=== PATIENT | female | born 1950 | race Caucasian/White ===

== ENCOUNTER → 2017-06-03 | Outpatient (CLI) | payer OTHER ==
--- NOTE | 2017-06-03 10:24 | KCIC ---
EXAM: Bilateral screening mammogram. HISTORY: 67-year-old female presents for screening mammography. TECHNIQUE: Full-field digital craniocaudal and mediolateral oblique views of both breasts are obtained for evaluation. Computer aided detection with FaceAlertaD software version 9.3 was applied. COMPARISON: 04/21/2016 BREAST PARENCHYMAL DENSITY: Level C - Heterogeneously dense. FINDINGS: There is suggestion of a circumscribed or partially circumscribed nodular density within the posterior 2:00 position of the left breast. There are asymmetries within both breasts which did not persist between projections, consistent with summation artifact. There are benign calcifications. IMPRESSION: BI-RADS Category 0: Additional imaging needed. RECOMMENDATION: Further evaluation with spot compression views of the left breast to assess a density at the 2:00 position is recommended. Sonographic imaging can also be performed if deemed indicated based on additional imaging findings. The patient will be contacted to return for additional imaging. If your mammogram demonstrates that you have dense breast tissue, which could hide abnormalities, and if you have other risk factors for breast cancer that have been identified, you might benefit from supplemental screening tests that may be suggested by your ordering physician. Dense breast tissue, in and of itself, is a relatively common condition. This information is not provided to cause undue concern, but rather to raise your awareness and to promote discussion with your physician regarding the presence of other risk factors, in addition to dense breast tissue. A report of your mammography results will be sent to you and your physician. You should contact your physician if you have any questions or concerns regarding this report. Mammography is a sensitive method for finding small breast cancers, but it does not detect them all and is not a substitute for careful clinical examination. A negative mammogram does not negate a clinically suspicious finding and should not result in delay in biopsying a clinically suspicious abnormality. PQRS compliance statement - Patient information was entered into a reminder system with a target due date for the next mammogram. "Our facility is accredited by the [employer] Mammography [employer]." Electronically signed by: Mariana Michel MD (06/03/2017 10:21 AM)
== END | disposition home or self-care (01) ==
LOC: KCIC MAMMO 08:54
PROVIDERS: ATTEND Obstetrics & Gynecology
DX: Z12.31 Encounter for screening mammogram for malignant neoplasm of breast (principal)
CPT/HCPCS: G0202; 77067

== ENCOUNTER → 2017-06-12 | Outpatient (CLI) | payer OTHER ==
--- NOTE | 2017-06-12 10:24 | KCIC ---
Diagnostic digital mammograms left breast: Reason for examination: Nodular density on screening mammogram. Comparison is made to mammographic exam dated 06/03/2017. Coned compression views were obtained in CC and oblique projections. With these additional views, the area of nodularity is less prominent but is probably obscured by the heterogeneously dense fibroglandular tissue. No suspicious masses or calcifications are identified. IMPRESSION: No suspicious abnormality seen mammographically with additional views. Ultrasound to follow. BI-RADS Category 0: Incomplete. Ultrasound to follow. Left Breast Ultrasound: Left whole breast ultrasound including evaluation of all 4 quadrants and the retroareolar and axillary regions of the left breast was performed. In the 1:00 position 3 cm from the nipple and probably corresponding to the area of mammographic concern, there is a small 5.4 x 4.5 mm circumscribed lesion consistent with some focal fibrocystic change. No other cystic or solid lesions are seen. IMPRESSION: Benign-appearing fibrocystic type lesion in the 1:00 position 3 cm from the nipple measuring 5.4 mm in greatest dimension. This probably corresponds to the area of mammographic concern. No other cystic or solid lesions are seen. Recommend 6 month sonographic follow-up. BI-RADS Category 3: Probably Benign. "Our facility is accredited by the [employer] Mammography [employer]." This patient's information has been entered into a reminder system for the patient to be notified with the results of her examination and a target date for the next mammogram. Electronically signed by: Dee Dee Tolbert MD (06/12/2017 10:21 AM) [id number]
== END | disposition home or self-care (01) ==
LOC: KCIC MAMMO 07:45
PROVIDERS: ATTEND Obstetrics & Gynecology
DX: N63 Unspecified lump in breast (principal)
CPT/HCPCS: 76641; G0206; 77065

== ENCOUNTER → 2018-12-08 | Outpatient (CLI) | payer MEDICARE, OTHER ==
--- NOTE | 2018-12-08 15:17 | KCIC ---
Left breast ultrasound: Reason for examination: Follow-up nodule. Comparison is made to previous study dated 06/12/2017. Ultrasound examination was performed in the air previous concern sonographically and at the left axilla. There continues to be a small hypoechoic lesion at the 1:00 position 3 cm from the nipple measuring 5.4 x 3.2 mm in greatest dimensions. This shows no interval change. There are no new cystic or solid lesion seen. No abnormal appearing lymph nodes are seen in the left axilla. IMPRESSION: No significant change in the small nodule at the 1:00 position. Recommend 6 month ultrasound follow-up at the time of bilateral mammograms. BI-RADS Category 3: Probably Benign. "Our facility is accredited by the [employer] Mammography [employer]." This patient's information has been entered into a reminder system for the patient to be notified with the results of her examination and a target date for the next mammogram. Electronically signed by: Dee Dee Tolbert MD (12/08/2018 3:13 PM) [id number]
== END | disposition home or self-care (01) ==
LOC: KCIC US 13:09
PROVIDERS: ATTEND Specialist
DX: N63.21 Unspecified lump in the left breast, upper outer quadrant (principal)
CPT/HCPCS: 76641

== ENCOUNTER → 2019-03-08 | Outpatient (CLI) | payer MEDICARE ==
--- NOTE | 2019-03-08 10:20 | KCIC ---
Bilateral diagnostic digital mammograms with 3-D tomosynthesis: Reason for examination: Follow-up nodule. Comparison is made to previous studies dated back to 04/21/2016. Bilateral mammograms in CC and oblique projections were obtained with 2-D imaging and 3-D tomosynthesis imaging on a Siemens Inspiration unit and reviewed on the workstation. Interpretation was made with the benefit of CAD. The skin and nipples show no abnormalities. No abnormal axillary lymph nodes are seen. The breast parenchyma is heterogeneously dense. (Breast density: Category C.) There are no dominant masses, suspicious calcifications or architectural distortion. Biopsy clip is present at the 1:00 B position in the left breast. Impression: No evidence of malignancy. Ultrasound to follow. Your patient's mammogram demonstrates that she has dense breast tissue (breast density category C or D), which could hide abnormalities, and if she has other risk factors for breast cancer that have been identified, she might benefit from supplemental screening tests that may be suggested by you as her ordering physician. Dense breast tissue, in and of itself, is a relatively common condition. Therefore, this information is not provided to cause undue concern, but rather to raise your awareness and to promote discussion with your patient regarding the presence of other risk factors, in addition to dense breast tissue. Your patient's mammography results will be sent to her. BI-RAD Category 0: Incomplete. Needs additional imaging evaluation. Left breast ultrasound: Comparison is made to previous studies dated 12/08/2018 and 06/12/2017. Ultrasound examination was performed in the area of concern at the 1:00 position 3 cm from the nipple and at the axilla. There continues to be a small hypoechoic circumscribed lesion measuring 5 mm in greatest dimension and lies in parallel orientation. This probably represents a small fibroadenoma and appears to be stable. No other cystic or solid lesions are seen. No abnormal appearing lymph nodes are seen in the axilla. IMPRESSION: Continued presence of a small circumscribed nodule at the 1:00 position measuring 5 mm in size consistent with a small fibroadenoma and appearing to be stable. Recommend routine mammographic follow-up. BI-RADS Category 2: Benign. "Our facility is accredited by the [employer] Mammography [employer]." This patient's information has been entered into a reminder system for the patient to be notified with the results of her examination and a target date for the next mammogram. Electronically signed by: Dee Dee Tolbert MD (03/08/2019 10:17 AM) [id number]
== END | disposition home or self-care (01) ==
LOC: KCIC MAMMO 08:37
PROVIDERS: ATTEND Specialist
DX: N63.21 Unspecified lump in the left breast, upper outer quadrant (principal)
CPT/HCPCS: 76641; 77066; G0279; 77062

== ENCOUNTER → 2020-01-31 | Outpatient (CLI) | payer MEDICARE ==
--- NOTE | 2020-01-31 16:39 | KCIC ---
CHEST PA LATERAL Clinical indications: Preoperative study. No current symptoms. Nonsmoker. The patient is 69 years old. COMPARISON: None available. Findings: Mild bilateral peribronchial thickening is seen. No acute lung infiltrate or pleural effusion or lung mass or pneumothorax is seen. The heart size, pulmonary vasculature, mediastinum and both mindy are unremarkable. The osseous structures appear intact. Impression: Mild bilateral peribronchial thickening. This may represent acute or chronic bronchitis. No consolidative pneumonia. Electronically signed by: Fred Chavis MD (01/31/2020 4:36 PM) [facility] [place]
== END | disposition home or self-care (01) ==
LOC: KCIC 10:25
PROVIDERS: ATTEND Clinical Nurse Specialist Family Health
DX: Z01.818 Encounter for other preprocedural examination (principal); J92.9 Pleural plaque without asbestos
CPT/HCPCS: 71046

== ENCOUNTER → 2020-05-15 | Outpatient (CLI) | payer MEDICARE ==
--- NOTE | 2020-05-15 11:19 | KCIC ---
Bilateral digital screening mammograms with 3-D tomosynthesis: Reason for examination: Routine screening. Comparison is made to previous studies dated back to 04/21/2016. Bilateral mammograms in CC and oblique projections were obtained with 2-D imaging and 3-D tomosynthesis imaging on a Siemens Inspiration unit and reviewed on the workstation. Interpretation was made with the benefit of CAD. The skin and nipples show no abnormalities. No abnormal axillary lymph nodes are seen. The breast parenchyma is extremely dense. (Breast density: Category D.) There is some subtle architectural distortion suggested superiorly in the left breast on oblique view probably around the 11:00 position. Recommend further evaluation with ultrasound. There is also some nodularity seen posterior centrally in the right breast on oblique view. Further evaluation with ultrasound is recommended. There are no other dominant masses, suspicious calcifications or architectural distortion. Biopsy clip remains present on the left. Impression: Possible architectural distortion superiorly in the left breast on oblique view probably around the 11:00 position. Nodular density posterior centrally in the right breast on oblique view. Recommend further evaluation with bilateral breast ultrasound. Your patient's mammogram demonstrates that she has dense breast tissue (breast density category C or D), which could hide abnormalities, and if she has other risk factors for breast cancer that have been identified, she might benefit from supplemental screening tests that may be suggested by you as her ordering physician. Dense breast tissue, in and of itself, is a relatively common condition. Therefore, this information is not provided to cause undue concern, but rather to raise your awareness and to promote discussion with your patient regarding the presence of other risk factors, in addition to dense breast tissue. Your patient's mammography results will be sent to her. BI-RAD Category 0: Incomplete. Needs additional imaging evaluation. "Our facility is accredited by the [employer] Mammography [employer]." This patient's information has been entered into a reminder system for the patient to be notified with the results of her examination and a target date for the next mammogram. Electronically signed by: Dee Dee Tolbert MD (05/15/2020 11:16 AM) [id number]
== END | disposition home or self-care (01) ==
LOC: KCIC MAMMO 09:08
PROVIDERS: ATTEND Clinical Nurse Specialist Family Health
DX: Z12.31 Encounter for screening mammogram for malignant neoplasm of breast (principal); N64.89 Other specified disorders of breast
CPT/HCPCS: 77063; 77067

== ENCOUNTER → 2021-05-28 | Outpatient (CLI) | payer MEDICARE ==
--- NOTE | 2021-05-28 15:47 | KCIC ---
Bilateral digital screening mammograms with 3-D tomosynthesis: Reason for examination: Routine screening. Comparison is made to previous studies dated back to 03/05/2015. Bilateral mammograms in CC and oblique projections were obtained with 2-D imaging and 3-D tomosynthes is imaging on a Siemens Inspiration unit and reviewed on the workstation. Interpretation was made wit h the benefit of CAD. The skin and nipples show no abnormalities. No abnormal axillary lymph nodes are seen. The breast par enchyma is extremely dense. (Breast density: Category D.) There are no dominant masses, suspicious ca lcifications or architectural distortion. Biopsy clip remains present on the left. Impression: No evidence of malignancy. Recommend routine screening. Your patient's mammogram demonstrates that she has dense breast tissue (breast density category C or D), which could hide abnormalities, and if she has other risk factors for breast cancer that have bee n identified, she might benefit from supplemental screening tests that may be suggested by you as her ordering physician. Dense breast tissue, in and of itself, is a relatively common condition. Therefo re, this information is not provided to cause undue concern, but rather to raise your awareness and t o promote discussion with your patient regarding the presence of other risk factors, in addition to d ense breast tissue. Your patient's mammography results will be sent to her. BI-RAD Category 1: Negative. "Our facility is accredited by the [employer] Mammography Program." This patient's information has been entered into a reminder system for the patient to be notified wit h the results of her examination and a target date for the next mammogram. Electronically signed by: Dee Dee Tolbert MD (05/28/2021 3:45 PM) [id number]
== END ==
LOC: KCIC MAMMO 10:28
PROVIDERS: ATTEND Clinical Nurse Specialist Family Health
DX: Z12.31 Encounter for screening mammogram for malignant neoplasm of breast (principal)
CPT/HCPCS: 77063; 77067

== ENCOUNTER → 2022-03-10 | Outpatient (CLI) | payer MEDICARE ==
[~2022-03-10] MED LIST: DIVA250T PO; GADOTERATE 5 MMOL/10ML VIAL. IVP ONE; LAMO100T5 PO; LATA2.5D2 OU; LEVE500T56 PO; LOSA100T2 PO; OMEP20TA63 PO
--- NOTE | 2022-03-10 13:50 | KCIC ---
MRI BRAIN WO+W Date: 03/10/2022 10:02 AM Indication: LOCAL-REL SYMPTC EPI W CMPLX PART SEIZ, NTRCT, W/O STAT EPI. ATAXIA. Controlled seizure disorder. New balance issues. Comparison: None. Technique: Multiplanar multisequence MRI of the brain was performed with and without intravenous cont rast using the seizure protocol. 8 cc Clariscan contrast was administered intravenously during the ex am. Findings: No acute infarct. No acute or chronic hemorrhage. The ventricles are normal in size and configuration without hydrocephalus. Mild scattered FLAIR hyperintensities in the subcortical and periventricular deep white matter, a nonspecific finding, most commonly seen with chronic small vessel ischemic disea se. Moderate cerebral volume loss. Hippocampi are normal in signal and morphology. No wild matter heterotopia or cortical dysplasia. No evidence of arteriovenous malformation or cavernoma. No abnormal enhancement. The scalp and calvarium are normal. The pituitary and sella are normal. No Chiari malformation. Mild incompletely characterized degenerative spondylosis of the visualized upper cervical spine. The visualized orbits and globes are normal. The visualized paranasal sinuses are clear. The mastoid air cells are clear. Normal flow voids within the vertebral, basilar, and internal carotid arteries indicating patency. IMPRESSION: 1. No acute infarct or hemorrhage. No mass or abnormal enhancement. 2. Mild chronic small vessel ischemic disease and moderate cerebral volume loss. Electronically signed by: Raymond Junior MD (03/10/2022 1:48 PM) [id number]
== END ==
LOC: KCIC MRI 09:43
PROVIDERS: ATTEND Psychiatry & Neurology Neurology
DX: I67.82 Cerebral ischemia (principal); G93.89 Other specified disorders of brain; M47.812 Spondylosis without myelopathy or radiculopathy, cervical region; G40.219 Localization-related (focal) (partial) symptomatic epilepsy and epileptic syndromes with complex partial seizures, intractable, without status epilepticus; R26.0 Ataxic gait
CPT/HCPCS: 70553; 82565; A9575